=== PATIENT | female | born 1985 | race Caucasian/White ===

== ENCOUNTER 2018-02-13 20:40 | Emergency (ER) | payer OTHER | END 2018-02-13 23:35 | disposition home or self-care (01) | LOC: FTE 20:40 | DX: R05 Cough (principal) | CPT/HCPCS: 99283; Z7502 ==

== ENCOUNTER 2018-02-18 06:55 | Emergency (ER) | payer OTHER | END 2018-02-18 07:41 | disposition home or self-care (01) | LOC: FTE 06:55 | DX: J06.9 Acute upper respiratory infection, unspecified (principal); H10.023 Other mucopurulent conjunctivitis, bilateral | CPT/HCPCS: 99283; Z7502 ==

== ENCOUNTER 2018-08-05 23:03 | Emergency (ER) | payer OTHER ==
[2018-08-06 01:55] LABS: URINE BLOOD (Dip) POC Negative (NEGATIVE); URINE GLUCOSE (Dip) POC Negative (NEGATIVE); URINE KETONES (Dip) POC Trace (NEGATIVE); URINE LEUKOCYTE EST (Dip) POC Negative (NEGATIVE); URINE NITRITE (Dip) POC Negative (NEGATIVE); URINE TOTAL PROTEIN POC 1+ (NEGATIVE)
[2018-08-06] MEDS: ONDANSETRON (ODT) 4 MG TAB ODT (02:03)
[2018-08-06] MEDS: KETOROLAC 60 MG INJ IM (02:03)
== END 2018-08-06 02:55 | disposition home or self-care (01) ==
LOC: FTE 23:03
DX: K52.9 Noninfective gastroenteritis and colitis, unspecified (principal)
CPT/HCPCS: 81003; 81025; 96372; 99284-25